=== PATIENT | male | born 1980 | race Caucasian/White ===

== ENCOUNTER 2017-11-07 12:57 | Emergency (ER) | payer MEDICAID ==
[2017-11-07 13:14] VITALS: Ht 165.1 cm
[2017-11-07 14:13] LABS: CALCIUM 8.6 mg/dL (8.5-10.1); CARBON DIOXIDE 24.6 mmol/L (21-32); CHLORIDE SERUM 106 mmol/L (98-107); CREATININE SERUM 0.7 mg/dL (0.7-1.3); GFR1 > 60 mL/min; GLUCOSE SERUM 108 mg/dL (74-106); POTASSIUM SERUM 4.5 mmol/L (3.5-5.1); SODIUM SERUM 136 mmol/L (136-145)
[2017-11-07 14:49] LABS: BASOPHIL % 0.6 % (0-2); PLATELET COUNT 246 x10^3mcL (130-400); RED CELL DISTRIBUTION WIDTH 12.8 % (11.5-14.5)
[2017-11-07 15:36] VITALS: BP 130/74
== END 2017-11-07 15:36 | disposition home or self-care (01) ==
LOC: ED 12:57
PROVIDERS: Emergency Medicine
DX: L03.115 Cellulitis of right lower limb (principal)
CPT/HCPCS: 36415; 82962

== ENCOUNTER 2017-11-09 12:22 | Emergency (ER) | payer MEDICAID ==
[~2017-11-09] VITALS: Ht 165.1 cm; Wt 105.2 kg
[2017-11-09 12:26] VITALS: Ht 165.1 cm; Wt 105.2 kg
[2017-11-09 13:09] VITALS: BP 139/56
== END 2017-11-09 13:09 | disposition home or self-care (01) ==
LOC: ED 12:22
DX: Z48.01 Encounter for change or removal of surgical wound dressing (principal)

== ENCOUNTER 2017-12-01 13:31 | Emergency (ER) | payer MEDICAID ==
[~2017-12-01] VITALS: Ht 162.6 cm; Wt 103.4 kg
[2017-12-01 13:43] VITALS: Ht 162.6 cm; Wt 103.4 kg
[2017-12-01 14:27] VITALS: BP 134/78
== END 2017-12-01 14:27 | disposition home or self-care (01) ==
LOC: ED 13:31
DX: B35.3 Tinea pedis (principal); L08.9 Local infection of the skin and subcutaneous tissue, unspecified
CPT/HCPCS: 82962